=== PATIENT | female | born 1985 | race Caucasian/White ===

== ENCOUNTER → 2017-01-10 | Outpatient (REF) | payer BC, SELFPAY ==
[2017-01-10 12:15] LABS: CONTROL LINE UCG INT CTR LINE PRESENT
== END ==
LOC: M LAB REF 12:04
PROVIDERS: ATTEND Physician Assistant Surgical
DX: J02.9 Acute pharyngitis, unspecified (principal); R50.9 Fever, unspecified

== ENCOUNTER → 2017-01-11 | Outpatient (CLI) | payer OTHER ==
--- NOTE | 2017-01-11 17:19 | REP ---
The lung meyers are clear. The cardiac size is normal The yajaira, mediastinum, and bony thorax are unremarkable. Impression: Negative PA and lateral chest. Signed by Kain Ríos MD 01/11/2017 05:10 P
== END ==
LOC: M WUC 16:51
PROVIDERS: ATTEND Physician Assistant Surgical
DX: R05 Cough (principal); R50.9 Fever, unspecified

== ENCOUNTER → 2020-01-31 | Outpatient (CLI) | payer OTHER ==
--- NOTE | 2020-02-01 08:14 | REP ---
INDICATION: Z34.81 DATING AND VIABILITY COMPARISON: None. TECHNIQUE: Transabdominal 1st trimester obstetrical ultrasound with color Doppler evaluation. FINDINGS: Single live early intrauterine is appreciated. Gestational sac with yolk sac and pole identified. [place]-rump length of 42 mm corresponds to 11 weeks 0 days gestational age with estimated date of delivery 08/21/2020. heart rate equals 169 beats per minute. No gross abnormalities are identified. IMPRESSION: Single live early intrauterine at 11 weeks 0 days gestational age. Complete anatomical assessment should be performed and 19-20 weeks. <Electronically signed by Hardeep Cruz > 02/01/20 [id number]
== END ==
LOC: M WHC 13:35
PROVIDERS: ATTEND Obstetrics & Gynecology
DX: Z34.81 Encounter for supervision of other normal pregnancy, first trimester (principal)

== ENCOUNTER → 2020-04-03 | Outpatient (CLI) | payer OTHER ==
--- NOTE | 2020-04-03 11:34 | REP ---
INDICATION: ANATOMY COMPARISON: None. TECHNIQUE: Transabdominal obstetrical ultrasound with color Doppler evaluation. FINDINGS: Examination demonstrates a single live intrauterine in variable presentation. motion is identified by technologist. Placenta is noted posterior and grade 1 without evidence for placenta previa or abruption. Amniotic fluid volume is normal. Cervix measures 4.2 cm in length and appears closed.. Gestational age by LMP 19 weeks 0 days with ANGIE 08/28/2020. Gestational age by current measurements 19 weeks 6 days with ANGIE 08/22/2020. FHR equals 146 beats per minute. BPD: 4.2 cm 18 weeks 4 days HC: 16.9 cm 19 weeks 4 days AC: 14.1 cm 19 weeks 3 days FL: 3.5 cm 21 weeks 0 days HL: 3.3 cm 21 weeks 0 days HC/AC: 1.20 Estimated weight 329 grams (greater than 97th percentile based on age by LMP and 1st ultrasound and 58th percentile based on age by current measurements). Anatomical assessment demonstrates normal structures including cranium, choroid plexus, cavum, cerebellum/posterior fossa, facial features, lungs, four-chamber heart/ventricular outflow tracts, diaphragm, stomach, cord insertion/three-vessel cord, kidneys/bladder, spine, and extremities. IMPRESSION: Single live intrauterine in cephalic presentation demonstrating appropriate anatomical assessment. <Electronically signed by Hardeep Cruz > 04/03/20 [id number]
== END ==
LOC: M WHC 08:04
PROVIDERS: ATTEND Obstetrics & Gynecology Obstetrics
DX: Z36.82 Encounter for antenatal screening for nuchal translucency (principal); Z3A.19 19 weeks gestation of pregnancy

== ENCOUNTER → 2023-01-12 | Outpatient (CLI) | payer OTHER ==
[2023-01-12 16:53] LABS: RSV AMPLIFICATION NEGATIVE (NEGATIVE)
== END ==
LOC: M RAD 13:48
PROVIDERS: ATTEND Physician Assistant Medical
DX: B34.9 Viral infection, unspecified (principal)

== ENCOUNTER → 2024-04-13 | Outpatient (REF) | payer OTHER | LOC: M LAB REF 16:11 | PROVIDERS: ATTEND Physician Assistant Medical | DX: B34.9 Viral infection, unspecified (principal) ==